=== PATIENT | male | born 1985 ===

== ENCOUNTER → 2023-04-17 10:09 | Outpatient (BNVA) | payer OTHER, SELFPAY | PROVIDERS: Visit Provider Student in an Organized Health Care Education/Training Program | DX: M25.561 Pain in right knee (principal) | CPT/HCPCS: 73560; 73565; 99203 ==

== ENCOUNTER 2025-05-04 08:30 | Outpatient (CLI) | payer OTHER, SELFPAY | END 2025-05-04 08:31 | disposition home or self-care (01) | LOC: SLEEP 08:31 | PROVIDERS: Referring Provider Family Medicine Geriatric Medicine; Visit Provider Internal Medicine Pulmonary Disease | DX: G47.33 Obstructive sleep apnea (adult) (pediatric) (principal) | CPT/HCPCS: G0399 ==